=== PATIENT | male | born 1995 | race Two or more races ===

== ENCOUNTER 2023-11-17 17:04 | Emergency (ER) | payer OTHER ==
[~2023-11-17] VITALS: Ht 182.9 cm; Wt 113.4 kg
== END 2023-11-17 18:35 | disposition home or self-care (01) ==
LOC: ER 17:05
DX: S61.221A Laceration with foreign body of left index finger without damage to nail, initial encounter (principal); W26.0XXA Contact with knife, initial encounter; Y93.89 Activity, other specified; Y92.69 Other specified industrial and construction area as the place of occurrence of the external cause; Y99.8 Other external cause status

== ENCOUNTER 2023-11-28 07:38 | Emergency (ER) | payer OTHER ==
[~2023-11-28] VITALS: Ht 167.6 cm; Wt 68.0 kg
== END 2023-11-28 10:03 | disposition home or self-care (01) ==
LOC: ER 07:38
DX: Z48.02 Encounter for removal of sutures (principal)